=== PATIENT | female | born 1985 | race Caucasian/White ===

== ENCOUNTER 2021-09-02 11:14 | Emergency (ER) | payer OTHER ==
[2021-09-02 11:29] VITALS: BP 145/88; O2SAT 100
--- NOTE | 2021-09-02 11:39 | ERPHSYRPT ---
- History of Present Illness Time Seen by Provider: 09/02/21 11:25 Source: patient Exam Limitations: no limitations Patient Subjective Stated Complaint: mouth/lip sores and pain Triage Nursing Assessment: pt to ED c/o mouth and lip pain x 1 week. pt states this came on after her seasonal allergies last week. rates 1/10 pain and increases while eating. noted blistering to upper lip. Physician History: The patient is a 36-year-old female who presents with a chief complaint of mouth sores. Of note, onset reportedly was this past Friday, August 27, 2021. She states she had what appeared to be a blister just below the left nostril that progressed to blisters and vesicles over the upper lip to include the mucosa of the upper lip as well. These have since ruptured and are now scabbed over but are now painful. She endorsed having some swelling initially but the swelling has since gone down. She states she has had similar lesions in the past but not as many but these would heal on their own. She states she normally gets these after becoming ill or stressed. She denies sore throat, fever, chills, ocular involvement, cervical adenopathy, shortness of breath, cough, rash or any genitalia involvement. She reportedly has been applying Chapstick to the affected region but feels that the lesions are getting worse and decided to seek treatment in the emergency department today. Allergies/Adverse Reactions: No Known Drug Allergies Allergy (Unverified 09/02/21 11:19) Hx Tetanus, Diphtheria Vaccination/Date Given: No Hx Influenza Vaccination/Date Given: No Hx Pneumococcal Vaccination/Date Given: No Immunizations Up to Date: No Travel Risk - International Travel Have you traveled outside of the country in past 3 weeks: No (N) If Yes, where;: N - Coronavirus Screening Are you exhibiting any of the following symptoms?: No Close contact with a COVID-19 positive Pt in past 14-21 Days: No - Vaccine Status Have you recieved a Covid-19 vaccination: No - Review of Systems Constitutional: No Fever, No Chills Ears, Nose, & Throat: Other (Swelling and pain to the upper lip with sores) Respiratory: No Cough Abdominal/Gastrointestinal: No Nausea, No Vomiting Genitourinary Symptoms: No Symptoms All Other Systems: Reviewed and Negative - Past Medical History Pertinent Past Medical History: No - Past Surgical History Past Surgical History: No - Social History Smoking Status: Never smoker Exposure to second hand smoke: Yes Drug Use: none Patient Lives Alone: No - Female History Hx Last Menstrual Period: today Hx Now: No - Nursing Vital Signs Nursing Vital Signs: Initial Vital Signs Temperature 97.7 F 09/02/21 11:20 Pulse Rate 103 H 09/02/21 11:20 Respiratory Rate 20 09/02/21 11:20 Blood Pressure 145/88 09/02/21 11:20 O2 Sat by Pulse Oximetry 100 09/02/21 11:20 Pain Scale Pain Intensity 1 - Physical Exam General Appearance: no apparent distress, alert, anxiety (Seems anxious) Eye Exam: PERRL/EOMI, No photophobia, No EOM palsy/anisocoria Ears, Nose, Throat Exam: TMs normal, pharynx normal, dry mucous membranes, other (There appeared to be some ulcerating lesions noted to the mucosa of the upper lip to involve the cutaneous portion of the upper lip just below the nose. There is some crusting and possibly the wounds were becoming impetiginized. These lesions seem consistent with a cold sore.), No TM abnormal (R), No TM abnormal (L), No pharyngeal erythema, No tonsillar exudate Neck Exam: normal inspection, non-tender, supple Respiratory Exam: normal breath sounds, lungs clear, airway intact, No chest tenderness, No respiratory distress Cardiovascular Exam: regular rate/rhythm, normal heart sounds, No murmur, No friction rub, No gallop Rectal Exam: deferred Neurologic Exam: alert, oriented x 3 Skin Exam: normal color, warm, dry, No rash, No petechiae SpO2 Interpretation: normal SpO2: 100 O2 Delivery: Room Air - Course Nursing assessment & vital signs reviewed: Yes - Progress Progress: unchanged Progress Note: 09/02/21 11:47 Nontoxic in appearance. I suspect the patient's lesions are likely cold sores probably from a herpes virus. This seems to be a recurrent infection per her history and I think at the very most there is a possibility that these lesions are becoming impetiginized. Unfortunately, she is greater than 72 hours from her symptom onset but I will go ahead and prescribe Valtrex for her to take to see if this will help. I have also provided a refill for this medication should she start to get these again in the future and she was instructed to start this medication within 72 hours to reduce her symptoms and speed of resolution. Also prescribe mupirocin for it applied to the lesions in case this is truly started to become impetiginized. In the meantime I informed her to take Tylenol as well as ibuprofen for any ongoing pain and that she can purchase these medications [id number]. She was instructed to avoid hot, spicy or citrus type foods to prevent her pain from being exacerbated. She agreed with and verbally understood the discharge plan. Counseled pt/family regarding: diagnosis, need for follow-up - Departure Departure Disposition: Home Clinical Impression: Recurrent cold sores, Impetigo Condition: Stable Critical Care Time: No Referrals: RUDY HOLCOMB [Primary Care Provider] - Follow up/PCP as directed Instructions: Cold Sores (Oral Herpes) Additional Instructions: Please take Tylenol and/or ibuprofen as needed for any ongoing pain. You can purchase these medications [id number]. Please take these medications as instructed on the medication bottles. Prescriptions: Mupirocin [Bactroban OINTMENT] 22 gm TP TID #1 Valacyclovir HCl [Valtrex] 1,000 mg PO DAILY 5 Days #5 tablet
[2021-09-02 11:48] VITALS: PULSE 88
== END 2021-09-02 11:46 | disposition home or self-care (01) ==
LOC: ED 11:14
DX: B00.1 Herpesviral vesicular dermatitis (principal); L01.00 Impetigo, unspecified
CPT/HCPCS: 99283

== ENCOUNTER 2021-12-17 16:32 | Emergency (ER) | payer OTHER ==
--- NOTE | 2021-12-17 16:33 | ERPHSYRPT ---
- History of Present Illness Time Seen by Provider: 12/17/21 16:33 Source: patient Exam Limitations: no limitations Physician History: This is a 36-year-old white female who is right-handed and was walking her dog her dog pulled suddenly and she had pain in her right hand and right wrist. She did not fall on an outstretched hand. She is concerned because of the degree of pain she is experiencing. Occurred: this afternoon Method of Injury: other (Sudden pulling) Quality: aching Severity of Pain-Max: mild (To moderate) Severity of Pain-Current: mild (To moderate) Extremities Pain Location: wrist: right, hand: right Modifying Factors: Improves With: movement Associated Symptoms: none Allergies/Adverse Reactions: No Known Drug Allergies Allergy (Verified 12/17/21 16:45) Home Medications: No Reportable Medications [No Reported Medications] 12/17/21 [History] Hx Tetanus, Diphtheria Vaccination/Date Given: No Hx Influenza Vaccination/Date Given: No Hx Pneumococcal Vaccination/Date Given: No Travel Risk - International Travel Have you traveled outside of the country in past 3 weeks: No - Coronavirus Screening Are you exhibiting any of the following symptoms?: No Close contact with a COVID-19 positive Pt in past 14-21 Days: No - Vaccine Status Have you recieved a Covid-19 vaccination: No - Review of Systems Constitutional: No Symptoms Eyes: No Symptoms Ears, Nose, & Throat: No Symptoms Respiratory: No Symptoms Cardiac: No Symptoms Abdominal/Gastrointestinal: No Symptoms Genitourinary Symptoms: No Symptoms Musculoskeletal: Injury (Right wrist and hand) Skin: No Symptoms Neurological: No Symptoms Psychological: No Symptoms Endocrine: No Symptoms Hematologic/Lymphatic: No Symptoms Immunological/Allergic: No Symptoms All Other Systems: Reviewed and Negative - Past Medical History Pertinent Past Medical History: No - Past Surgical History Past Surgical History: No - Social History Smoking Status: Never smoker Exposure to second hand smoke: Yes Drug Use: none Patient Lives Alone: No - Nursing Vital Signs Nursing Vital Signs: Initial Vital Signs Temperature 99.2 F 12/17/21 16:41 Pulse Rate 110 H 12/17/21 16:41 Respiratory Rate 20 12/17/21 16:41 Blood Pressure 121/78 12/17/21 16:41 O2 Sat by Pulse Oximetry 100 12/17/21 16:41 Pain Scale Pain Intensity 6 - Physical Exam General Appearance: no apparent distress, alert, anxiety Eyes, Ears, Nose, Throat Exam: normal ENT inspection, moist mucous membranes Neck Exam: normal inspection, non-tender, supple, full range of motion Cardiovascular/Respiratory Exam: chest non-tender, no respiratory distress Abdominal Exam: non-tender Back Exam: normal inspection, normal range of motion, No CVA tenderness, No vertebral tenderness Shoulder Exam: normal inspection, non-tender, no evidence of injury, normal ROM Elbow/Forearm Exam: normal inspection, non-tender, no evidence of injury, normal ROM Wrist Exam: normal ROM, soft tissue tenderness Hand Exam: normal ROM, soft tissue tenderness Neuro/Tendon Exam: normal sensation, normal motor functions, normal tendon functions Mental Status Exam: alert, oriented x 3, cooperative Skin Exam: normal color, warm, dry SpO2 Interpretation: normal O2 Delivery: Room Air - Course Nursing assessment & vital signs reviewed: Yes Ordered Tests: Active Orders 24 hr Category Date Time Status HAND (MINIMUM 3 VIEWS) Stat Exams 12/17/21 17:00 Taken WRIST (MIN 3 VIEWS) Stat Exams 12/17/21 17:00 Taken - Progress Progress Note: 12/17/21 17:29 X-ray of right hand shows no acute fracture or dislocation. X-ray of right wrist shows no acute fracture or dislocation. Counseled pt/family regarding: diagnosis, need for follow-up, rad results - Departure Departure Disposition: Home Clinical Impression: Right wrist pain, Right hand pain Condition: Stable Critical Care Time: No Referrals: RUDY HOLCOMB [Primary Care Provider] - Follow up/PCP as directed Additional Instructions: Wear Velcro splint for comfort. Follow-up tomorrow at the orthopedic clinic at [facility] between the hours of 8 AM and 10 AM. It is a walk-in clinic. You do not need an appointment. Use Tylenol and ibuprofen for pain control. Ice pack or ice bath 3 times a day for the next 48 hours.
[2021-12-17 17:43] VITALS: BP 118/70; PULSE 99; O2SAT 98
--- NOTE | 2021-12-18 08:41 | XRAY ---
Indication: Pain following injury. Comparison: None 3 view right wrist obtained. No bony, articular, or soft tissue abnormalities.
--- NOTE | 2021-12-18 08:41 | XRAY ---
Indication: Pain following injury. Comparison: None 3 view right hand obtained. No bony, articular, or soft tissue abnormalities.
== END 2021-12-17 17:48 | disposition home or self-care (01) ==
LOC: ED 16:32
DX: M25.531 Pain in right wrist (principal); M79.641 Pain in right hand; X50.0XXA Overexertion from strenuous movement or load, initial encounter; Y93.K1 Activity, walking an animal; Z28.310 Unvaccinated for COVID-19
CPT/HCPCS: 73110; 73130; 99283; L3908